=== PATIENT | female | born 1960 | race Caucasian/White ===

== ENCOUNTER 2024-10-30 16:05 | Emergency (ER) | payer OTHER ==
--- OUTSIDE RECORDS SUMMARY | 2024-10-30 16:09 | XMS REPORT | Continuity of Care Document ---
Author Name Unknown Address [address] [facility] [place] [address] [facility] [place] Address [address] [facility] [address] [place] [address] Care Team Providers Care Insurance Billing Clerk Name Role Phone PCP, PATIENT DOES NOT HAVE A Primary Care Physic kaye Crockett MD, Renny Attending Clinician Unknown, Attending Attending Clinician RENNY Christensen Attending Clinician Unavailable GLORIA Attending Clinician Unavailab Grimm Attending Clinician Unavailable Latanya Brooks Attending Clinician Crista SWAN, Shayy Solitario Attending Clinician LATANYA Durán Attending Clinician Unavaildorcas e Doctor Unassigned, [place] Attending Clinician U navailable GLORIA Admitting Clinician Reji Grimm Admitting Clinician Unavailable Payers Payer Name Policy Type Policy Number Effective Date Expirati on Date Source Problems Condition Name Condition Details Condition Category Status Onset Date Resolution Date Last Treatment Date Treating Clinician Comments Source No known active problems No known active problems Disease [facility] Allergies, Adverse Reactions, Alerts Allergy Name Allergy Type Status Severity Reaction(s) Onset Date Inactive Date Treating Clinician Comments Source NO KNOWN ALLERGIE S Drug Class Active [facility] Social History Social Habit Start Date Stop Date Quantity Comments Source Exposure to SARS-CoV-2 (event) Not sure [facility] Sexual orientation U [facility]ly [facility] Tobacco use and exposure 2021-03-25 00:00:00 2021-03-25 00:00:00 Smokeless tobacco non-user [facility] History of Social function 2021-03-25 00:00:00 2021-03-25 00:00:00 [facility] Sex assigned at 1960 00:00:00 1960 00:00:00 [facility] Smoking Status Start Date Stop Date Source Unknown if ever smoked [facility] Never smoked tobacco [facility] Medications Ordered Medication Name Filled Medication Name Start Date Stop Date Current Medication? Ordering Clinician Indication Dosage Frequency Signature (SIG) Comments Components Source benzonatate 100 mg capsule 10-27 00:00: 00 Yes [id number] 200mg Take 2 capsules by mouth every 8 (eight) hours as needed for Cough. [facility] promethazin e-dextromet horphan 6.25-15 mg/5 mL syrup 10-27 00:00: 00 Yes [id number] 5mL Take 5 mL by mouth 4 (four) times daily as needed for Cough. [facility] albuterol 90 mcg/actuati on inhaler 03-25 00:00: 00 Yes [id number] 2{puff} Inhale 2 Puffs every 6 (six) hours as needed for Wheezing or Shortness of Breath. [facility] benzonatate 200 mg capsule 03-25 00:00: 00 10-27 00:00 :00 No [id number] 200mg Take 1 capsule by mouth 3 (three) times daily as needed for Cough. [facility] Vital Signs Vital Name Observation Time Observation Value Comments S ource Systolic blood pressure 2023-10-28 19:32:00 129 mm[Hg] [facility] Diastolic blood pressure 2023-10-28 19:32:00 80 mm[Hg] [facility] Heart rate 2023-10-28 19:31:00 81 /min Donna [facility] Body temperature 2023-10-28 19:31:00 37 Kristie [facility] Respiratory rate 2023-10-28 19:31:00 14 /min [facility] Body height 2023-10-28 19:31:00 160 cm [facility] Body weight 2023-10-28 19:31:00 80.287 kg [facility] BMI 2023-10-28 19:31:00 31.35 kg/m2 [facility] Oxygen saturation in Arterial blood by Pulse oximetry 2023-10-28 19:31:00 97 /min [facility] Systolic blood pressure 2021-03-25 15:45:00 151 mm[Hg] [facility] Diastolic blood pressure 2021-03-25 15:45:00 90 mm[Hg] [facility] Heart rate 2021-03-25 15:41:00 101 /min [facility] Body temperature 2021-03-25 15:41:00 36.89 Kristie [facility] Respiratory rate 2021-03-25 15:41:00 18 /min [facility] Body height 2021-03-25 15:41:00 162.6 cm [facility] Body weight 2021-03-25 15:41:00 82.963 kg [facility] BMI 2021-03-25 15:41:00 31.39 kg/m2 [facility] Oxygen saturation in Arterial blood by Pulse oximetry 2021-03-25 15:41:00 99 /min [facility] Procedures Procedure Date / Time Performed Performing Clinicia n Source POCT SARS-COV-2 ANTIGEN (BINAX NOW) 2023-10-28 19:29:00 Renny Crockett [facility] ASSIGNMENT OF BENEFITS 2021-03-25 15:35:45 Docto r Unassigned, [place] [facility] Encounters Start Date/Time End Date/Time Encounter Type Admission Type Attending Clinicians Care Facility Care Department Encounter ID Source 2023-10-28 14:00:00 2023-10-28 14:20:00 Urgent Care [facility] Crockett Unknown[facility] [id number] [facility] 2023-10-28 14:00:00 2023-10-28 14:00:00 Outpatient R RENNY CROCKETT [facility] [id number] [facility] 2021-03-26 00:00:00 2021-03-26 00:00:00 Telephone Manny formerly [facility] [id number] [facility] 2021-03-26 00:00:00 2021-03-26 00:00:00 Letter (Out) Shayy Tobin [facility] [id number] [facility] 2021-03-25 10:00:00 2021-03-25 10:00:00 Urgent Care Manny, formerly [facility] [id number] [facility] 2021-03-25 10:00:00 2021-03-25 09:59:28 Outpatient R MANNY [facility] [id number] [facility] 2021-03-25 00:00:00 2021-03-25 00:00:00 Orders Only Doctor Unassigned, [place] [facility] [id number] [facility] Results Test Description Test Time Test Comments Results Result Co mments Source [facility]
[2024-10-30] MEDS ORDERED: NA CHLORIDE 0.9% 1,000 ML ONE ×2 (16:37→20:21)
[2024-10-30 17:08] LABS: Sqamous Epithelial <5 /HPF (None Seen); Urine Culture Reflex Order NOT NEEDED; Urine Microscopic Reflex YN ORDER UMIC; Urine Yeast (Budding) Trace /HPF (None Seen)
--- NOTE | 2024-10-30 17:36 | RAD REPORT ---
Procedure: Chest Single View HISTORY: Abdominal pain COMPARISON: none FINDINGS: The lungs appear clear of acute infiltrate. No significant pleural effusion noted. The heart is normal size. IMPRESSION: No acute abnormality is displayed.
[2024-10-30 17:39] LABS: Absolute Lymphocytes (CBC) 2.0 K/uL (0.7-4.9); Hematocrit 32.4 % (36.0-45.0); Hemoglobin 10.9 g/dL (12.0-15.0); MCH 30.4 pg (27.0-35.0); MCHC 33.7 g/dL (32.0-36.0); MCV 90.2 fL (80-100); MPV 7.2 fL (7.6-11.3); Nucleated RBC Absolute Count 0.0 (0-0); Nucleated Red Blood Cells % 0.0 % (0-0); RBC Red Blood Cell Count 3.59 M/uL (3.86-4.86); White Blood Count 7.50 thou/uL (4.3-10.9)
[2024-10-30 17:49] LABS: PT Prothrombin Time 12.7 SECONDS (10-13.0); PTT, Activated Partial Thromb 30.4 SECONDS (27.2-37.4); Protime INR 1.13
[2024-10-30 17:59] LABS: ALT/SGPT 28 U/L (13-56); AST/SGOT 15 U/L (15-37); Albumin 3.3 g/dL (3.4-5.0); Albumin/Globulin Ratio 0.8 (1.1-1.8); Alkaline Phosphatase 89 U/L (45-117); Anion Gap 9.4 mEq/L (5.0-15.0); BUN Blood Urea Nitrogen 9 mg/dL (7-18); Globulin 4.3 g/dL (2.3-3.5); Glucose Level 90 mg/dL (74-106); Magnesium 2.5 mg/dL (1.6-2.4); Potassium 3.4 mEq/L (3.5-5.1); Troponin High Sensitivity 3.7 pg/mL (<58.9)
[2024-10-30 18:08] LABS: Bilirubin Indirect, Calculated 0.0 mg/dL (0.2-0.8)
--- NOTE | 2024-10-30 19:40 | ER ---
Nurse's Notes [facility] Name: Margarita Lee Age: 64 yrs Sex: Female : 1960 Arrival Date: 10/30/2024 Time: 16:05 Bed 15 Private MD: Diagnosis: Mass of Transverse Colon;Diverticulitis of large intestine with perforation and abscess without bleeding Presentation: 10/30 16:17 Chief complaint: Patient states: Had coloscopy Saturday. Abdominal pain and bloating ll1 since Saturday. GI doctor told her come to ED right away for hole in bowel. Coronavirus screen: Client denies travel out of the [place] in the last 14 days. At this time, the client does not indicate any symptoms associated with coronavirus-19. Ebola Screen: Patient denies travel to an Ebola-affected area in the 21 days before illness onset. Initial Sepsis Screen: Does the patient meet any 2 criteria? No. Patient's initial sepsis screen is negative. Does the patient have a suspected source of infection? No. Patient's initial sepsis screen is negative. Risk Assessment: Do you want to hurt yourself or someone else? Patient reports no desire to harm self or others. Onset of symptoms was October 28, 2024. 16:17 Method Of Arrival: Ambulatory ll1 16:17 Acuity: SUSAN 2 ll1 Triage Assessment: 16:19 General: Appears distressed, uncomfortable, Behavior is cooperative, appropriate for ll1 age, anxious. Pain: Complains of pain in abdomen Pain currently is 1 out of 10 on a pain scale. GI: Reports lower abdominal pain, upper abdominal pain, bloating. Historical: - Allergies: 16:19 No Known Allergies; ll1 - PMHx: 16:19 None; ll1 - PSHx: 16:19 Appendectomy; hysterectomy; ll1 - Immunization history:: Adult Immunizations up to date. - Infectious Disease History:: Denies. - Social history:: Smoking status: Patient denies any tobacco usage or history of. Screenin:48 [facility] ED Fall Risk Assessment (Adult) History of falling in the last 3 months, kc6 including since admission No falls in past 3 months (0 pts) Confusion or Disorientation No (0 pts) Intoxicated or Sedated No (0 pts) Impaired Gait No (0 pts) Mobility Assist Device Used No (0 pt) Altered Elimination No (0 pt) Score/Fall Risk Level 0 - 2 = Low Risk Oriented to surroundings. Abuse screen: Denies threats or abuse. Denies injuries from another. Nutritional screening: No deficits noted. Tuberculosis screening: No symptoms or risk factors identified. Assessment: 16:48 General: Appears in no apparent distress. comfortable, well groomed, well developed, kc6 Behavior is cooperative, appropriate for age, crying. Pain: Denies pain. Neuro: Level of Consciousness is awake, alert, obeys commands, Oriented to person, place, time, situation, Appropriate for age. GI: Abdomen is round non-distended, Last BM was October 29, 2024. at 15:00. Abd is soft and non tender X 4 quads. Reports constipation, Patient currently denies abdominal pain, diarrhea, nausea, vomiting. : No signs and/or symptoms were reported regarding the genitourinary system. Urine is clear. Derm: No signs and/or symptoms reported regarding the dermatologic system. Skin is intact, is healthy with good turgor, Skin is pink, warm \T\ dry. 17:28 Reassessment: nurse charge rn at bedside attempting to start an IV and collect labs. [facility] 17:48 Reassessment: Patient appears in no apparent distress at this time. No changes from kc6 previously documented assessment. Patient and/or family updated on plan of care and expected duration. Pain level reassessed. Patient is alert, oriented x 3, equal unlabored respirations, skin warm/dry/pink. 18:48 Reassessment: Patient appears in no apparent distress at this time. No changes from kc6 previously documented assessment. Patient and/or family updated on plan of care and expected duration. Pain level reassessed. Patient is alert, oriented x 3, equal unlabored respirations, skin warm/dry/pink. 19:51 Reassessment: Patient appears in no apparent distress at this time. No changes from 12 previously documented assessment. Patient and/or family updated on plan of care and expected duration. Pain level reassessed. Patient is alert, oriented x 3, equal unlabored respirations, skin warm/dry/pink. 21:35 Reassessment: Transfer report given to Hermes at [facility]. 12 Vital Signs: 16:17 BP 163 / 115; Pulse 93; Resp 17; Temp 98.2; Pulse Ox 100% ; Weight 81.65 kg; Height 5 ll1 ft. 3 in. ; Pain 2/10; 16:26 BP 161 / 89; nh2 18:53 BP 154 / 87; Pulse 79; Resp 17 S; Pulse Ox 98% on R/A; kc6 19:32 BP 146 / 83; Pulse 75; Resp 18 S; Pulse Ox 99% on R/A; ss12 20:00 BP 151 / 85; Pulse 76; Resp 16 S; Pulse Ox 100% on R/A; ss12 21:00 BP 132 / 95; Pulse 69; Resp 16 S; Pulse Ox 100% on R/A; ss12 16:17 Body Mass Index 31.89 (81.65 kg, 160.02 cm) ll1 16:17 Pain Scale: Adult ll1 Erasmo Coma Score: 19:32 Eye Response: spontaneous(4). Motor Response: obeys commands(6). Verbal Response: ss12 oriented(5). Total: 15. ED Course: 16:11 Patient arrived in ED. im 16:16 Arm band placed on. ll1 16:18 Luis Enrique Lau PA is PHCP. cp 16:18 Luis Enrique Sarah MD is Attending Physician. cp 16:19 Triage completed. ll1 16:21 Carolee Adams, BENY is Primary Nurse. kc6 16:26 Patient placed in an exam room, on a stretcher. nh2 16:47 Patient has correct armband on for positive identification. Bed in low position. Call kc6 light in reach. Side rails up X 1. night monitor on. Pulse ox on. NIBP on. Door closed. Noise minimized. Lights dimmed. Pillow given. Verbal reassurance given. 16:47 EKG done, by ED staff, reviewed by Luis Enrique FIELDS. Patient maintains SpO2 saturation kc6 greater than 95% on room air. 17:06 XRAY Chest (1 view) In Process Unspecified. EDMS 17:26 Missed attempt(s): 20 gauge in left forearm. Missed attempt(s): 22 gauge in right kc6 forearm. Missed attempt(s): 20 gauge in right forearm. Missed attempt(s): 20 gauge in right antecubital area. 17:34 Initial lab(s) drawn, by me, sent to lab. Inserted saline lock: 22 gauge in left ll1 forearm, using aseptic technique. Blood collected. Flushed with 10 mL NS. 18:53 Assisted to bathroom. kc6 19:37 First set of blood cultures drawn by me. oe 19:40 initiated transfer with Reji Regan at [facility]. km 19:55 No provider procedures requiring assistance completed. ss12 19:55 Second set of blood cultures drawn by me. oe 19:56 Provided Education on: plan of care. ss12 20:30 Blood Culture Adult (2) Sent. ss12 21:00 pt was accepted to [facility] by Dr. Yost \T\1945. Accepting admin Reji Regan \T\ 2100. km f [place] to transfer pt once nurse to nurse is complete. Number for nurse to nurse [phone]. 22:29 Patient transferred, IV remains in place. ss12 Administered Medications: 17:34 Drug: NS 0.9% IV 1000 ml IV at 1 bolus Per protocol; to be given as a bolus over 60 kc6 minutes Route: IV; Rate: 1 bolus; Site: left forearm; 18:52 Follow up: Response: No adverse reaction; IV Status: Completed infusion; IV Intake: kc6 1000ml 20:00 Drug: Piperacillin-Tazobactam IVPB 3.375 grams IVPB once over 60 mins; (mix in NS 100 ss12 mL) Route: IVPB; Infused Over: 60 mins; Site: left forearm; 20:20 Drug: NS 0.9% IV 1000 ml IV at 100 ml/hr once Route: IV; Rate: 100 ml/hr; Site: left ss12 forearm; Medication: 19:56 VIS not applicable for this client. ss12 Intake: 18:52 IV: 1000ml; Total: 1000ml. kc6 Outcome: 19:39 ER care complete, transfer ordered by . cp 22:29 Transferred by ground EMS to [facility], 12 22:29 Condition: stable 22:30 Patient left the ED. 12 Signatures: Dispatcher [employer] EDMS Luis Enrique Lau PA PA cp Espinosa, Orlando oe Lewis, Lynsay, RN RN ll1 Carolee Adams RN RN kc6 Katelin Bee Kelsey Maroul [facility] Calderon Jr, Jasmeet, RN RN nh2 Shamaila, Shamaila, RN RN ss12
--- NOTE | 2024-10-30 19:40 | EDPHYS ---
Physician Documentation [facility] Name: Margarita Lee Age: 64 yrs Sex: Female : 1960 Arrival Date: 10/30/2024 Time: 16:05 Bed 15 Private MD: ED Physician Luis Enrique Sarah HPI: 10/30 16:40 This 64 yrs old Female presents to ER via Ambulatory with complaints of Abdominal Pain. cp 16:40 The patient presents with abdominal pain that is diffuse, abdominal distention that is cp diffuse. 16:40 Patient is a 64-year-old female who presents to the emergency department with cp complaints of abdominal pain and distention. Patient reports having a colonoscopy this past Saturday done by Dr. Henderson, a local GI physician. Patient reports she started having abdominal pain and distention over the last day or so, called Dr. Burgess's office who ordered a CT abdomen pelvis that was performed today at [facility]. Patient reports she was not informed that the CT showed a perforation of her colon and that she was to proceed to an emergency department immediately. Historical: - Allergies: 16:19 No Known Allergies; ll1 - PMHx: 16:19 None; ll1 - PSHx: 16:19 Appendectomy; hysterectomy; ll1 - Immunization history:: Adult Immunizations up to date. - Infectious Disease History:: Denies. - Social history:: Smoking status: Patient denies any tobacco usage or history of. ROS: 16:45 Cardiovascular: Negative for chest pain, edema, palpitations, cp 16:45 Eyes: Negative for injury, pain, redness, and discharge, cp 16:45 Constitutional: Negative for body aches, chills, fever, 16:45 Respiratory: Negative for cough, shortness of breath, wheezing, 16:45 Abdomen/GI: Positive for abdominal pain, nausea, abdominal distension, Negative for vomiting, diarrhea, constipation, black/tarry stool, rectal bleeding, 16:45 : Negative for urinary symptoms, 16:45 All other systems are negative, Exam: 16:46 ECG was reviewed by the Attending Physician. cp 16:50 Constitutional: The patient appears in no acute distress, alert, awake, cp non-diaphoretic, non-toxic, well developed, well nourished, 16:50 Head/Face: Normocephalic, atraumatic. cp 16:50 Eyes: Periorbital structures: appear normal, Conjunctiva: normal, no exudate, no injection, Sclera: no appreciated abnormality, Lids and lashes: appear normal, bilaterally, 16:50 ENT: External ear(s): are unremarkable, Nose: is normal, Mouth: Lips: moist, Oral mucosa: moist, Posterior pharynx: Airway: no evidence of obstruction, patent, 16:50 Chest/axilla: Inspection: normal, 16:50 Cardiovascular: Rate: normal, Rhythm: regular, 16:50 Respiratory: the patient does not display signs of respiratory distress, Respirations: normal, no use of accessory muscles, no retractions, labored breathing, is not present, Breath sounds: are clear throughout, no decreased breath sounds, no stridor, no wheezing, 16:50 Abdomen/GI: Inspection: abdomen appears normal, Bowel sounds: active, all quadrants, Palpation: abdomen is soft and non-tender, in all quadrants, 16:50 Back: CVA tenderness, is absent, Vital Signs: 16:17 BP 163 / 115; Pulse 93; Resp 17; Temp 98.2; Pulse Ox 100% ; Weight 81.65 kg; Height 5 ll1 ft. 3 in. ; Pain 2/10; 16:26 BP 161 / 89; nh2 18:53 BP 154 / 87; Pulse 79; Resp 17 S; Pulse Ox 98% on R/A; kc6 19:32 BP 146 / 83; Pulse 75; Resp 18 S; Pulse Ox 99% on R/A; ss12 20:00 BP 151 / 85; Pulse 76; Resp 16 S; Pulse Ox 100% on R/A; ss12 21:00 BP 132 / 95; Pulse 69; Resp 16 S; Pulse Ox 100% on R/A; ss12 16:17 Body Mass Index 31.89 (81.65 kg, 160.02 cm) ll1 16:17 Pain Scale: Adult ll1 Erasmo Coma Score: 19:32 Eye Response: spontaneous(4). Motor Response: obeys commands(6). Verbal Response: ss12 oriented(5). Total: 15. MDM: 16:36 Medical Screening Exam initiated colten 19:35 ED course: consult with general surgery, , recommends transfer for cp colorectal surgery consultation. 19:45 Data reviewed: vital signs, nurses notes, diagnostic data from outside facility, CT cp report of abdomen/pelvis performed 10/30/[address] [facility]. 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 19:45 Differential diagnosis: diverticulitis, non-specific abd pain, Peritonitis, cp Pyelonephritis, Ureterolithiasis, urinary tract infection, sepsis. I considered the following discharge prescriptions or medication management in the emergency department Medications were administered in the Emergency Department. See MAR. Independent interpretation of the following test(s) in the Emergency Department EKG: See my EKG interpretation above. Counseling: I had a detailed discussion with the patient and/or guardian regarding the historical points, exam findings, and any diagnostic results supporting the discharge/admit diagnosis, lab results, radiology results. 20:58 ED course: accepted by hospitalist at [address]quez to [facility]. cp 10/30 16:37 Order name: Basic Metabolic Panel; Complete Time: 18:11 cp 10/30 16:37 Order name: CBC with Diff; Complete Time: 17:48 cp 10/30 16:37 Order name: LFT's; Complete Time: 18:11 cp 10/30 16:37 Order name: Magnesium; Complete Time: 18:11 cp 10/30 16:37 Order name: PT-INR; Complete Time: 18:11 cp 10/30 16:37 Order name: Troponin HS; Complete Time: 18:11 cp 10/30 16:37 Order name: Ptt, Activated; Complete Time: 18:11 cp 10/30 16:37 Order name: UA Rfx Ariel Cult if indicated; Complete Time: 17:48 cp 10/30 16:37 Order name: Lactate w/ 2H reflex if indic.; Complete Time: 18:11 cp 10/30 19:14 Order name: Blood Culture Adult (2) cp 10/30 16:37 Order name: XRAY Chest (1 view); Complete Time: 17:48 cp 10/30 16:37 Order name: Cardiac monitoring; Complete Time: 16:42 cp 10/30 16:37 Order name: EKG - Nurse/Tech; Complete Time: 16:42 cp 08 16:37 Order name: IV Saline Lock; Complete Time: 17:34 cp 08 16:37 Order name: Labs collected and sent; Complete Time: 17:34 cp 10/30 16:37 Order name: O2 Per Protocol; Complete Time: 16:42 cp 10/30 16:37 Order name: O2 Sat Monitoring; Complete Time: 16:42 cp EC:46 Rate is 75 beats/min. Rhythm is regular. NC interval is normal. QRS interval is normal. cp QT interval is normal. T waves are Inverted in lead aVR. Interpreted by me. Reviewed by me. Administered Medications: 17:34 Drug: NS 0.9% IV 1000 ml IV at 1 bolus Per protocol; to be given as a bolus over 60 kc6 minutes Route: IV; Rate: 1 bolus; Site: left forearm; 18:52 Follow up: Response: No adverse reaction; IV Status: Completed infusion; IV Intake: kc6 1000ml 20:00 Drug: Piperacillin-Tazobactam IVPB 3.375 grams IVPB once over 60 mins; (mix in NS 100 ss12 mL) Route: IVPB; Infused Over: 60 mins; Site: left forearm; 20:20 Drug: NS 0.9% IV 1000 ml IV at 100 ml/hr once Route: IV; Rate: 100 ml/hr; Site: left ss12 forearm; Disposition Summary: 10/30/24 19:39 Transfer Ordered Notes: Transfer Location: [facility] cp Reason: Higher level of care cp Condition: Stable cp Problem: new cp Symptoms: have improved cp Accepting Physician: DR Hammonds(10/30/24 22:30) ss12 Diagnosis - Mass of Transverse Colon cp - Diverticulitis of large intestine with perforation and abscess without bleeding cp Forms: - Medication Reconciliation Form cp - SBAR form cp Signatures: Dispatcher [employer] EDMS Luis Enrique Sarah MD MD cha Page, Corey, PA PA cp Anahi Fischer RN RN ll1 Carolee Adams RN RN kc6 Carolee Zarco RN RN ss12 Corrections: (The following items were deleted from the chart) 16:37 16:37 BASIC METABOLIC PANEL+C.LAB.BRZ ordered. EDMS EDMS 16:37 16:37 CBC+H.LAB.BRZ ordered. EDMS EDMS 16:37 16:37 HEPATIC FUNCTION+C.LAB.BRZ ordered. EDMS EDMS 16:37 16:37 MAGNESIUM+C.LAB.BRZ ordered. EDMS EDMS 16:37 16:37 PROTIME (+INR)+COAG.LAB.BRZ ordered. EDMS EDMS 16:37 16:37 Troponin High Sensitivity+C.LAB.BRZ ordered. EDMS EDMS 16:37 16:37 PTT, ACTIVATED+COAG.LAB.BRZ ordered. EDMS EDMS 16:37 16:37 UA Rfx Ariel Cult if indicated+U.LAB.BRZ ordered. EDMS EDMS 16:37 16:37 LACTATE+C.LAB.BRZ ordered. EDMS EDMS 16:37 16:37 Chest Single View+RAD.RAD.BRZ ordered. EDMS EDMS 18:32 17:51 Abdomen Pelvis W Con+CT.RAD.BRZ ordered. EDMS EDMS 20:32 19:39 doctor cp cp 22:30 20:32 DR Hammonds cp ss12 10/31 22:04 10/30 19:20 ED course: consult with general surgery, , recommends transfer cp for colorectal surgery consultation. cp
[2024-10-30] MEDS ORDERED: NA CHLORIDE 0.9% 100 ML ONE (19:46)
[2024-10-30] MEDS ORDERED: PIPERACIL/TAZO 3.375 GM VIAL IV ONE (19:47)
[2024-10-31 02:58] VITALS: TEMP 98.2
[2024-10-31 03:05] VITALS: O2SAT 100
[2024-10-31 03:06] VITALS: BP 132/95
== END 2024-10-30 22:30 | disposition short-term general hospital (02) ==
LOC: ER 16:05
DX: K57.20 Diverticulitis of large intestine with perforation and abscess without bleeding (principal); K63.89 Other specified diseases of intestine
CPT/HCPCS: 96361; 87040 ×2; 85025; 81001; 80048; 36415; 83735; 85610; 80076; 83605; 85730; 84484; 71045; 96374; 99285; J2543; J7030 ×2; 93005